=== PATIENT | female | born 1985 | race Hispanic/Latino ===

== ENCOUNTER 2020-07-24 15:43 | Emergency (ER) | payer BC, OTHER ==
[~2020-07-24] VITALS: Ht 162.6 cm; Wt 56.2 kg
[2020-07-24] MEDS ORDERED: SODIUM CHLORIDE 0.9% 1000ML 1,000 ML IV STA (16:16)
[2020-07-24 16:40] LABS: BASOPHILS % 0.2 % (0.0-1.0); EOSINOPHILS % 0.2 % (0.0-6.0); HEMATOCRIT 41.3 % (34.2-44.1); HEMOGLOBIN 13.4 g/dL (12.0-16.0); LYMPHOCYTES # (AUTO) 2.9 (1.0-3.2); LYMPHOCYTES % 23.3 % (18.0-39.1); MEAN CORPUSCULAR HEMOGLOBIN 27.5 pg (28-32); MEAN CORPUSCULAR HGB CONC 32.4 g/dL (31-35); MEAN CORPUSCULAR VOLUME 84.6 fL (81-99); MONOCYTES % 7.9 % (4.4-11.3); NEUTROPHILS # (AUTO) 8.4 (2.1-6.9); PLATELET COUNT 353 x10e3/uL (140-360); RED BLOOD COUNT 4.88 x10e6/uL (3.6-5.1); RED CELL DISTRIBUTION WIDTH 12.4 % (11.7-14.4)
[2020-07-24 16:50] LABS: INR 0.91; PROTHROMBIN TIME 12.8 seconds (11.9-14.5)
[2020-07-24 16:51] LABS: PARTIAL THROMBOPLASTIN TIME 28.3 seconds (23.8-35.5)
[2020-07-24 16:59] LABS: ALANINE AMINOTRANSFERASE 11 IU/L (0-55); ALBUMIN 4.5 g/dL (3.5-5.0); ALBUMIN/GLOBULIN RATIO 1.1 (0.8-2.0); ALKALINE PHOSPHATASE 51 IU/L (40-150); ANION GAP 14.5 mmol/L (8-16); BLOOD UREA NITROGEN 17 mg/dL (7-26); BUN/CREATININE RATIO 20 (6-25); CALCIUM 9.4 mg/dL (8.4-10.2); CARBON DIOXIDE 27 mmol/L (22-29); CHLORIDE 102 mmol/L (98-107); CREATININE, SERUM 0.87 mg/dL (0.57-1.11); EST GLOMERULAR FILTRATION RATE > 60 ML/MIN (60-); GLUCOSE 95 mg/dL (74-118); POTASSIUM 3.5 mmol/L (3.5-5.1); SODIUM 140 mmol/L (136-145)
[2020-07-24] MEDS ORDERED: IOPAMIDOL 370 MG/ML 200 ML INFUS..BTL INJ ONE (17:19)
[2020-07-24] MEDS ORDERED: SODIUM CHLORIDE 0.9% 50ML 50 ML ONE (17:19)
[2020-07-24 17:54] VITALS: BP 128/91
== END 2020-07-24 18:00 | disposition home or self-care (01) ==
LOC: ER 16:18
DX: R06.02 Shortness of breath (principal); R53.83 Other fatigue; J45.909 Unspecified asthma, uncomplicated
CPT/HCPCS: 36415; 71260; 80053; 84702; 85025; 85610; 85730; 99284; J7030; Q9967

== ENCOUNTER → 2024-08-26 | Outpatient (REF) | payer BC | LOC: US 08:41 | PROVIDERS: ATTEND Family Medicine | DX: N63.10 Unspecified lump in the right breast, unspecified quadrant (principal); D24.1 Benign neoplasm of right breast; R92.30 Dense breasts, unspecified ==